=== PATIENT | female | born 1945 | race Caucasian/White ===

== ENCOUNTER 2020-07-01 07:26 | Emergency (ER) | payer OTHER ==
[~2020-07-01] VITALS: Ht 154.9 cm; Wt 56.7 kg
[2020-07-01] MEDS ORDERED: AVALIDE 300-121 EACH PO (07:35)
[2020-07-01] MEDS ORDERED: GLIMEPIRIDE4 MG PO (07:36)
[2020-07-01] MEDS ORDERED: AVAPRO150 MG PO (07:36)
[2020-07-01] MEDS ORDERED: PEPCID AC20 MG PO (07:37)
[2020-07-01] MEDS ORDERED: NEURONTIN300 MG PO (07:37)
[2020-07-01] MEDS ORDERED: CRESTOR5 MG PO (07:37)
[2020-07-01] MEDS ORDERED: FOLIC ACID1 MG PO (07:38)
[2020-07-01] MEDS ORDERED: KETO10TA2 PO (13:12)
== END 2020-07-01 13:26 | disposition home or self-care (01) ==
LOC: ER 07:26
DX: K57.30 Diverticulosis of large intestine without perforation or abscess without bleeding (principal); R10.12 Left upper quadrant pain; Z03.818 Encounter for observation for suspected exposure to other biological agents ruled out

== ENCOUNTER 2020-08-28 06:38 | Day surgery (SDC) | payer OTHER ==
[~2020-08-28 06:38] MED LIST: AVALIDE 300-121 EACH PO; AVAPRO150 MG PO; CRESTOR5 MG PO; FOLIC ACID1 MG PO; GLIMEPIRIDE4 MG PO; KETO10TA2 PO; NEURONTIN300 MG PO; PEPCID AC20 MG PO
== END 2020-08-28 10:15 | disposition home or self-care (01) ==
LOC: AMB-ENDOS 06:38
PROVIDERS: ATTEND Colon & Rectal Surgery
DX: K57.32 Diverticulitis of large intestine without perforation or abscess without bleeding (principal); K64.1 Second degree hemorrhoids; Z20.828 Contact with and (suspected) exposure to other viral communicable diseases